=== PATIENT | female | born 1990 | race Caucasian/White ===

== ENCOUNTER → 2021-05-29 | Outpatient (CLI) | payer OTHER | LOC: M RAD 16:00 | PROVIDERS: ATTEND Physician Assistant | DX: S92.351A Displaced fracture of fifth metatarsal bone, right foot, initial encounter for closed fracture (principal); X58.XXXA Exposure to other specified factors, initial encounter; Y92.9 Unspecified place or not applicable ==

== ENCOUNTER → 2022-12-29 | Outpatient (CLI) | payer OTHER ==
[2022-12-29 09:31] LABS: BASO # 0.1 10^3/uL (0.0-0.2); BASO % 0.9 % (0.0-1.0); EOS # 0.1 10^3/uL (0.0-0.5); EOS % 2.1 % (0.0-3.0); HEMATOCRIT 42.8 % (36.0-47.0); HEMOGLOBIN 13.7 g/dl (12.0-15.5); LYMPH % 28.8 % (24.0-44.0); MEAN CORPUSCULAR HEMOGLOBIN 27.6 pg (27.0-33.0); MEAN CORPUSCULAR VOLUME 86.1 fl (80.0-96.0); MONO # 0.5 10^3/uL (0.0-0.8); NEUTROPHILS # 4.1 10^3/uL (1.5-8.5); NEUTROPHILS % 61.1 % (36.0-66.0); PLATELET COUNT, AUTOMATED 268 10^3/uL (150-450); RED BLOOD COUNT 4.97 10^6/uL (4.00-5.40); WHITE BLOOD COUNT 6.8 10^3/uL (4.0-10.0)
[2022-12-29 09:53] LABS: ALBUMIN 3.8 G/DL (3.2-5.2); ALKALINE PHOSPHATASE 81 U/L (46-116); ALT/SGPT 10 U/L (7.0-40); AST/SGOT < 8 U/L (<34); BILIRUBIN,TOTAL 0.5 MG/DL (0.3-1.2); BLOOD UREA NITROGEN 12 MG/DL (9-23); CALCIUM LEVEL 8.9 MG/DL (8.5-10.1); CARBON DIOXIDE LEVEL 27 MMOL/L (20-31); CHLORIDE LEVEL 106 MMOL/L (98-107); CHOLESTEROL LEVEL 148 MG/DL (<200); CREATININE FOR GFR 0.91 MG/DL (0.55-1.30); FREE T4 0.94 NG/DL (0.89-1.76); GLOMERULAR FILTRATION RATE > 60.0 (>60); GLUCOSE, FASTING 85 MG/DL (60-100); HDL CHOLESTEROL 54.7 MG/DL (>40); IRON (FE) 60 UG/DL (50-170); LDL CHOLESTEROL 76.3 MG/DL (<100); NON-HDL-C 93.3 MG/DL; PERCENT SATURATION 16.4 % (13.2-45.0); POTASSIUM SERUM 4.4 MMOL/L (3.5-5.1); SODIUM LEVEL 139 MMOL/L (136-145); THYROID STIMULATING HORMONE 1.652 uIU/ML (0.55-4.78); TOTAL IRON BINDING CAPACITY 366 UG/DL (250-425); TRIGLYCERIDES LEVEL 85 MG/DL (<150)
[2022-12-29 09:54] LABS: FOLATE > 24.0 NG/ML (>5.4)
[2022-12-29 09:56] LABS: VITAMIN B12 LEVEL 434 PG/ML (211-911)
== END ==
LOC: M LAB 08:43
PROVIDERS: ATTEND Nurse Practitioner Adult Health
DX: Z13.0 Encounter for screening for diseases of the blood and blood-forming organs and certain disorders involving the immune mechanism (principal); Z13.220 Encounter for screening for lipoid disorders; Z13.29 Encounter for screening for other suspected endocrine disorder

== ENCOUNTER → 2023-03-24 | Outpatient (CLI) | payer OTHER | LOC: M RAD 12:19 | PROVIDERS: ATTEND Nurse Practitioner Adult Health | DX: M54.6 Pain in thoracic spine (principal); M54.50 Low back pain, unspecified ==

== ENCOUNTER → 2023-06-02 | Outpatient (REF) | payer OTHER | LOC: M SFHCWAGY 17:21 | PROVIDERS: ATTEND Nurse Practitioner Family | DX: Z12.4 Encounter for screening for malignant neoplasm of cervix (principal) | CPT/HCPCS: 87624; G0123 ==

== ENCOUNTER → 2024-02-14 | Outpatient (CLI) | payer OTHER ==
[~2024-02-14] MED LIST: AMPH1TAB2 PO; BUPR-597 PO; LORY1TAB2 PO; PERCOCET PO
[2024-02-14 15:00] LABS: BASO # 0.1 10^3/uL (0.0-0.2); BASO % 0.7 % (0.0-1.0); EOS # 0.1 10^3/uL (0.0-0.5); EOS % 1.2 % (0.0-3.0); HEMATOCRIT 43.5 % (36.0-47.0); HEMOGLOBIN 14.3 g/dl (12.0-15.5); LYMPH # 1.9 10^3/uL (1.5-5.0); MEAN CORPUSCULAR HEMOGLOBIN 28.3 pg (27.0-33.0); MEAN CORPUSCULAR HGB CONC 32.9 g/dl (32.0-36.5); MEAN CORPUSCULAR VOLUME 86.1 fl (80.0-96.0); MONO # 0.3 10^3/uL (0.0-0.8); MONO % 4.4 % (2.0-8.0); NEUTROPHILS # 4.9 10^3/uL (1.5-8.5); NEUTROPHILS % 67.3 % (36.0-66.0); PLATELET COUNT, AUTOMATED 270 10^3/uL (150-450); RED BLOOD COUNT 5.05 10^6/uL (4.00-5.40); WHITE BLOOD COUNT 7.3 10^3/uL (4.0-10.0)
[2024-02-14 15:31] LABS: BLOOD UREA NITROGEN 11 MG/DL (9-23); CALCIUM LEVEL 9.5 MG/DL (8.5-10.1); CARBON DIOXIDE LEVEL 26 MMOL/L (20-31); CHLORIDE LEVEL 104 MMOL/L (98-107); CREATININE FOR GFR 1.06 MG/DL (0.55-1.30); GLOMERULAR FILTRATION RATE > 60.0 (>60); GLUCOSE, FASTING 137 MG/DL (60-100); POTASSIUM SERUM 3.9 MMOL/L (3.5-5.1); SODIUM LEVEL 139 MMOL/L (136-145)
== END ==
LOC: M LAB 13:35
PROVIDERS: ATTEND Plastic Surgery Surgery of the Hand
DX: Z01.818 Encounter for other preprocedural examination (principal)

== ENCOUNTER → 2024-02-15 | Outpatient (REF) | payer OTHER ==
[~2024-02-15] MED LIST changes: -PERCOCET PO
[2024-02-18 11:57] LABS: HPV APTIMA Not Detected (Not Detected)
== END ==
LOC: M SFHCWAGY 15:00
PROVIDERS: ATTEND Nurse Practitioner Family
DX: Z12.4 Encounter for screening for malignant neoplasm of cervix (principal); R87.610 Atypical squamous cells of undetermined significance on cytologic smear of cervix (ASC-US); Z11.51 Encounter for screening for human papillomavirus (HPV); N73.9 Female pelvic inflammatory disease, unspecified
CPT/HCPCS: 87070; 87624; G0123

== ENCOUNTER 2024-02-28 10:15 | Observation (INO) | payer OTHER ==
[~2024-02-28] VITALS: Ht 162.6 cm; Wt 80.1 kg
[2024-02-28] MEDS ORDERED: HOME MED LIST COMPLETE! XX SCH (11:00)
[2024-02-28] MEDS: LR 1,000 ML IV SCH ×3 (11:27→20:02)
[2024-02-28] MEDS ORDERED: fentaNYL 100 MCG/2 ML INJECTION As Ordered ONE (13:00)
[2024-02-28] MEDS ORDERED: LIDOCAINE 2% 100MG/5ML SDV (FOR ANES.) As Ordered ONE (13:00)
[2024-02-28] MEDS ORDERED: MIDAZOLAM INJ 2MG/2ML VIAL As Ordered ONE (13:00)
[2024-02-28] MEDS ORDERED: propofoL 200 MG/20 ML VIAL As Ordered ONE (13:00)
[2024-02-28] MEDS ORDERED: ROCURONIUM BROMIDE 50MG/5ML VIAL As Ordered ONE (13:01)
[2024-02-28] MEDS ORDERED: ACETAMINOPHEN 1000MG 100ML IV BAG As Ordered ONE (13:01)
[2024-02-28] MEDS: ceFAZolin SOD 2 GM in IV 1 EA IV ONE (14:40)
[2024-02-28] MEDS: HEPARIN SOD (PORCINE) 5000UNITS/ML 1ML VIAL/SYRINGE SQ ONE (14:45)
[2024-02-28] MEDS ORDERED: MORPHINE 10 MG/ML 1ML VIAL As Ordered ONE (15:48)
[2024-02-28] MEDS ORDERED: SUGAMMADEX SODIUM 500 MG/5 ML VIAL (BRIDION) As Ordered ONE (16:37)
[2024-02-28] MEDS ORDERED: ONDANSETRON 4MG 2ML VIAL As Ordered ONE (16:37)
[2024-02-28] MEDS: GENTAMICIN SULF 80MG/2ML VIAL As Ordered ONE (17:30)
[2024-02-28] MEDS ORDERED: ACETAMINOPHEN TAB 650MG DOSE (2X325MG) PO PRN (17:40)
[2024-02-28] MEDS ORDERED: fentaNYL 100 MCG/2 ML INJECTION IV PRN (18:15)
[2024-02-28] MEDS ORDERED: HYDROMORPHONE HCL 0.5 MG/ 0.5 ML SYRINGE IV PRN (18:15)
[2024-02-28] MEDS: ONDANSETRON 4MG 2ML VIAL IV PRN ×2 (18:46→21:48)
[2024-02-28] MEDS: oxyCODONE 5MG TAB PO PRN (18:47)
[2024-02-28 19:40] VITALS: BP 127/96; TEMP 97.3; O2SAT 97
[2024-02-28 20:00] VITALS: BP 146/92; TEMP 97.2; O2SAT 97
[2024-02-28 20:30] VITALS: BP 118/88; TEMP 97; O2SAT 98
[2024-02-28] MEDS: traMADol 50 MG TAB PO PRN (21:17)
[2024-02-28 21:31] VITALS: BP 130/90; TEMP 97.2; O2SAT 96
[2024-02-28 22:30] VITALS: BP 132/85; TEMP 97.3; O2SAT 95
[2024-02-28] MEDS: ceFAZolin SOD 2 GM in IV 1 EA IV SCH (23:00)
[2024-02-28 23:31] VITALS: BP 133/86; TEMP 97; O2SAT 97
[2024-02-29 00:27] VITALS: BP 132/89; TEMP 96.8; O2SAT 97
[2024-02-29 04:06] VITALS: BP 126/89; TEMP 97.2; O2SAT 96
[2024-02-29] MEDS: PERCOCET 5MG/325MG TAB PO PRN (05:24)
[2024-02-29 07:54] VITALS: BP 127/87; TEMP 97.3; O2SAT 96
[2024-02-29] MEDS: buPROPion **XL** TABLET 150MG (WELLBUTRIN XL) PO SCH (09:12)
[2024-02-29] MEDS: ADDERALL 5 MG TAB PO SCH (09:12)
[2024-02-29] MEDS ORDERED: PERCOCET PO (09:34)
[2024-02-29 11:34] VITALS: BP 128/87; TEMP 97.2; O2SAT 96
== END 2024-02-29 14:05 | disposition home or self-care (01) ==
LOC: M SDC 10:15 → M RR INP 10:16 → M MS5PR 19:35
PROVIDERS: ADMIT Plastic Surgery Surgery of the Hand; ATTEND Plastic Surgery Surgery of the Hand
DX: N62 Hypertrophy of breast (principal); M54.2 Cervicalgia; M54.6 Pain in thoracic spine; M95.4 Acquired deformity of chest and rib; F90.1 Attention-deficit hyperactivity disorder, predominantly hyperactive type; F41.1 Generalized anxiety disorder; J30.9 Allergic rhinitis, unspecified; E66.9 Obesity, unspecified; Z79.899 Other long term (current) drug therapy
CPT/HCPCS: 19318; 81025; 88305; 96365; 96366; 96375; C9290; J0131; J0665; J0690; J1100; J1580; J2250; J2405; J3010

== ENCOUNTER → 2024-04-26 | Outpatient (REF) | payer OTHER ==
[~2024-04-26] MED LIST changes: +PERCOCET PO
== END ==
LOC: M SFHCWAGY 17:58
PROVIDERS: ATTEND Obstetrics & Gynecology
DX: R87.618 Other abnormal cytological findings on specimens from cervix uteri (principal); N72 Inflammatory disease of cervix uteri

== ENCOUNTER → 2024-04-27 | Outpatient (REF) | payer OTHER | LOC: M PLALAB 09:08 | PROVIDERS: ATTEND Obstetrics & Gynecology | DX: R87.618 Other abnormal cytological findings on specimens from cervix uteri (principal) ==

== ENCOUNTER → 2024-10-31 | Outpatient (CLI) | payer OTHER ==
[~2024-10-31] MED LIST changes: -BUPR-597 PO; +BUPR-766 PO
== END ==
LOC: M PLAIMG 09:42
PROVIDERS: ATTEND Nurse Practitioner Adult Health
DX: M77.11 Lateral epicondylitis, right elbow (principal); S46.811A Strain of other muscles, fascia and tendons at shoulder and upper arm level, right arm, initial encounter; W18.30XA Fall on same level, unspecified, initial encounter; Y92.009 Unspecified place in unspecified non-institutional (private) residence as the place of occurrence of the external cause